=== PATIENT | male | born 1965 | race Two or more races ===

== ENCOUNTER 2019-05-30 19:22 | Emergency (ER) | payer SELFPAY ==
[~2019-05-30] VITALS: Ht 167.6 cm; Wt 72.7 kg
[2019-05-30 22:05] VITALS: BP 142/79
== END 2019-05-30 22:50 | disposition home or self-care (01) ==
LOC: EMS 19:25
DX: H81.399 Other peripheral vertigo, unspecified ear (principal); R03.0 Elevated blood-pressure reading, without diagnosis of hypertension